=== PATIENT | female | born 1995 | race Two or more races ===

== ENCOUNTER 2016-11-21 13:33 | Emergency (ER) | payer SELFPAY ==
[~2016-11-21] VITALS: Ht 162.6 cm; Wt 59.0 kg
[2016-11-21 14:20] VITALS: BP 108/59
[2016-11-21] MEDS ORDERED: TOBR5DRO6 OD (14:21)
--- NOTE | 2016-11-21 14:21 | PHYS DOC ---
Adult General Chief Complaint Chief Complaint: EYE PROBLEMS HPI HPI Patient is a 21 year old female who presents with bilateral eye redness that began 4 days ago. Patient denies any vision loss. Review of Systems Review of Systems Constitutional: Denies fever or chills [] Eyes: Bilateral eye redness HENT: Denies nasal congestion or sore throat [] Musculoskeletal: Denies back pain or joint pain [] Integument: Denies rash or skin lesions [] Neurologic: Denies headache, focal weakness or sensory changes [] Endocrine: Denies polyuria or polydipsia [] Physical Exam Physical Exam Constitutional: Well developed, well nourished, no acute distress, non-toxic appearance. [] HENT: Normocephalic, atraumatic, bilateral external ears normal, oropharynx moist, no oral exudates, nose normal. [] Eyes: PERRLA, EOMI, bilateral conjunctiva are moderately injected left worse than right. There is greenish drainage around the left eyelid. Neck: Normal range of motion, no tenderness, supple, no stridor. [] Skin: Warm, dry, no erythema, no rash. [] Extremities: No tenderness, no cyanosis, no clubbing, ROM intact, no edema. [] Neurologic: Alert and oriented X 3, normal motor function, normal sensory function, no focal deficits noted. [] Psychologic: Affect normal, judgement normal, mood normal. [] EKG EKG [] Radiology/Procedures Radiology/Procedures [] Course & Med Decision Making Course & Med Decision Making Pertinent Labs and Imaging studies reviewed. (See chart for details) Patient has bilateral bacterial conjunctivitis. Discharged with tobramycin. Importance of good hand hygiene emphasis. Provided return precautions and discharged in stable condition. Dragon Disclaimer Dragon Disclaimer This electronic medical record was generated, in whole or in part, using a voice recognition dictation system. Departure Departure Impression: Primary Impression: Bacterial conjunctivitis of both eyes Disposition: 01 HOME, SELF-CARE Condition: STABLE Referrals: Amaury MOODY MD follow-up in 2 weeks if symptoms continue Patient Instructions: Bacterial Conjunctivitis, [id number] Additional Instructions: You were seen for pinkeye. Keep your hands clean. Use the prescribed antibiotics as ordered. Scripts Tobramycin (TOBRAMYCIN) 5 Ml Drops 1 DROP OD Q4HRS W/A, #5 ML Prov: MUTUNGA,MAUREEN [employer]CELAIN MIXER 11/21/16 MAUREEN WILSON APRN November 21, 2016 14:21
== END 2016-11-21 14:30 | disposition home or self-care (01) ==
LOC: ER 14:26
DX: H10.89 Other conjunctivitis (principal)
CPT/HCPCS: 99283